=== PATIENT | male | born 1985 | race Caucasian/White ===

== ENCOUNTER 2016-12-22 18:55 | Emergency (ER) ==
[2016-12-22 19:01] VITALS: BP 133/77; TEMP 97.5; BMI 19.8
[2016-12-22] MEDS ORDERED: SODIUM CHLORIDE 1,000 ML IV STA (19:16)
--- NOTE | 2016-12-22 19:16 | ED.PDOC ---
General ED Provider: Dr. ALEXANDRA DIXON Chief Complaint: Abdominal Pain Stated Complaint: Patient is a 31 year old woke up from nap with epigastric pain. He describes the pain is constant had never had previous episodes. States the pain makes his back hurt due to tightness. Time Seen by Physician: 18:59 Mode of Arrival: Walk-In Information Source: Patient Exam Limitations: No limitations Primary Care Provider: KEYANA AYALA Nursing and Triage Documentation Reviewed and Agree: Yes GI Complaint Exam - Abdominal Pain Complaint/Exam Onset: Gradual Duration: constant Symptoms Are: Still present Timing: Constant Initial Severity: Moderate Current Severity: Moderate Location of Pain: Diffuse Radiates To: Reports: Chest Character: Reports: Sharp Aggravating: Reports: None Alleviating: Reports: None Associated Signs and Symptoms: Denies: Diaphoresis, Fever, Cough, Chest pain, Dizziness, Back pain, Constipation, Blood in stool, Dysuria, Urinary frequency, Decreased urine output, Decreased appetite, Discharge, Nausea, Vomiting, Diarrhea, Decreased activity AAA Risk Factors: Reports: None Cardiac Risk Factors: Reports: None Testicular Torsion Risk Factors: Reports: None Surgical Obstruction Risk Factors: Reports: None Related Surgical History: Reports: None Abdominal Findings: Present: None Genitalia Exam: Present: Normal findings Rectal Exam: Present: Normal Findings Male Body Picture: 1 - pain and mild tenderness Differential Diagnoses: Appendicitis, Bowel Obstruction, Constipation, Gastroenteritis, PUD Quality Indicator For Non-Traumatic Chest Pain/Syncope: EKG Performed Review of Systems - Review Of Systems Constitutional: Reports: No symptoms Eyes: Reports: No symptoms Ears, Nose, Mouth, Throat: Reports: No symptoms Respiratory: Reports: No symptoms Cardiac: Reports: No symptoms GI: Reports: Abdominal pain, Poor appetite : Reports: No symptoms Musculoskeletal: Reports: No symptoms Skin: Reports: No symptoms Neurological: Reports: Anxiety Endocrine: Reports: No symptoms Hematologic/Lymphatic: Reports: No symptoms All Other Systems: Reviewed and Negative Past Medical History - Past Medical History Endocrine: Reports: None Cardiovascular: Reports: None Respiratory: Reports: None Hematological: Reports: None Gastrointestinal: Reports: None Genitourinary: Reports: None Neuro/Psych: Reports: None Musculoskeletal: Reports: None Cancer: Reports: Other (papillary cancer of the Thyroid ) - Surgical History General Surgical History: Reports: None - Family History Family History: Reports: None - Social History Smoking Status: Never smoker Alcohol Screening: Occasionally Physical Exam - Physical Exam Appearance: Ill-appearing Eyes: LOREE, EOMI, Conjunctiva clear ENT: Ears normal, Nose normal, Oropharynx normal Neck: Supple Respiratory: Airway patent, Breath sounds clear, Breath sounds equal, Respirations nonlabored Cardiovascular: RRR, Pulses normal, No rub, No murmur GI/: Soft, Nontender, No masses, Bowel sounds normal, No Organomegaly Musculoskeletal: Normal strength, ROM intact, No edema, No calf tenderness Skin: Warm, Dry, Normal color Neurological: Sensation intact, Motor intact, Reflexes intact, Cranial nerves intact, Alert, Oriented Psychiatric: Affect appropriate, Mood appropriate Interpretation - Radiology Interpretation Radiology Interpretation By: Radiologist Radiology Results: Negative Exam Interpreted: CT Scan (Abdomen and Pelvis.) - EKG Interpretation Time of EKG #1: 20:00 Rate: Normal Rhythm: Sinus Ectopy: None [place]: NL ST Segment: Normal Interpretation: none Critical Care Note - Critical Care Note Total Time (mins): 0 Course - Course Hematology/Chemistry: 12/22/16 19:25 12/22/16 19:25 Orders, Labs, Meds: Lab Review 12/22/16 12/22/16 19:19 19:25 WBC 5.39 RBC 4.89 Hgb 14.8 Hct 42.8 MCV 87.5 MCH 30.3 MCHC 34.6 RDW Coeff of Kimberli 12.2 Plt Count 257 Immature Gran % (Auto) 0.4 Neut % (Auto) 74.4 Lymph % (Auto) 12.4 [place] % (Auto) 9.8 Eos % (Auto) 2.4 Baso % (Auto) 0.6 Immature Gran # (Auto) 0.0 Neut # 4.0 Lymph # 0.7 [place] # 0.5 Eos # 0.1 Baso # 0.0 Sodium 136 Potassium 4.0 Chloride 100 Carbon Dioxide 23 Anion Gap 17.0 BUN 16 Creatinine 0.98 Estimated GFR (MDRD) 89.00 BUN/Creatinine Ratio 16.32 Glucose 91 Calcium 7.9 L Total Bilirubin 0.62 AST 28 ALT 39 Alkaline Phosphatase 71 Troponin I < 0.0100 Total Protein 8.2 Albumin 4.2 Globulin 4.0 Albumin/Globulin Ratio 1.05 Amylase 63 Lipase 15 Urine Color Yellow Urine Clarity Clear Urine pH 6.0 Ur Specific [place] 1.025 Urine Protein Negative Urine Glucose (UA) Negative Urine Ketones 1+ Urine Blood Negative Urine Nitrite Negative Urine Bilirubin Negative Urine Urobilinogen 0.2 Ur Leukocyte Esterase Negative Orders Category Date Time Status EKG-(ED ONLY) Stat CARDIO 12/22/16 19:54 Ordered ED IV/MEDIPORT/POWERPORT .ONCE EMERGENCY 12/22/16 19:16 Active AMYLASE Stat LAB 12/22/16 19:25 Completed CBC W/ AUTO DIFF Stat LAB 12/22/16 19:25 Completed COMPREHENSIVE METABOLIC PANEL Stat LAB 12/22/16 19:25 Completed LIPASE Stat LAB 12/22/16 19:25 Completed TROPONIN I Stat LAB 12/22/16 19:25 Completed URINALYSIS C & S IF INDICATED Stat LAB 12/22/16 19:19 Completed 0.9 % Sodium Chloride [Saline Flush] MEDS 12/22/16 19:16 Ordered 1 syr IVF PRN PRN Mag-Al Plus//Lidocaine [Gi Cocktail] MEDS 12/22/16 19:26 Discontinued 30 ml PO ONCE STA Morphine Sulfate [Morphine 4 mg/ml Syringe] MEDS 12/22/16 19:26 Discontinued 4 mg IM ONCE STA Morphine Sulfate [Morphine 4 mg/ml Syringe] MEDS 12/22/16 19:44 Discontinued 4 mg IVP ONCE STA Ondansetron HCl/Pf [Zofran 4 mg/2 ml] MEDS 12/22/16 19:27 Discontinued 4 mg IVP ONCE STA Pantoprazole Sodium [Protonix IV] MEDS 12/22/16 19:18 Discontinued 40 mg IVP ONCE STA Sodium Chloride 0.9% [Sodium Chloride] 1,000 ml MEDS 12/22/16 19:[address] ABD/PEL WO RENAL STONE PROT Stat RADS 12/22/16 19:16 Completed Medications Generic Name Dose Route Start Last Admin Trade Name Freq PRN Reason Stop Dose Admin Sodium Chloride 1 syr 12/22/16 19:16 12/22/16 19:51 Saline Flush IVF 1 syr PRN PRN Administration To flush IV Discontinued Medications Generic Name Dose Route Start Last Admin Trade Name Freq PRN Reason Stop Dose Admin Al Hydroxide/Mg Hydroxide 30 ml 12/22/16 19:26 12/22/16 19:52 Gi Cocktail PO 12/22/16 19:27 30 ml ONCE STA Administration Sodium Chloride 1,000 mls @ 1,000 mls/hr 12/22/16 19:16 12/22/16 19:37 Sodium Chloride IV 12/22/16 20:15 1,000 mls/hr BOLUS STA Administration Morphine Sulfate 4 mg 12/22/16 19:26 12/22/16 19:53 Morphine 4 Mg/Ml Syringe IM 12/22/16 19:27 Not Given ONCE STA Morphine Sulfate 4 mg 12/22/16 19:44 12/22/16 19:45 Morphine 4 Mg/Ml Syringe IVP 12/22/16 19:45 4 mg ONCE STA Administration Ondansetron HCl 4 mg 12/22/16 19:27 12/22/16 19:40 Zofran 4 Mg/2 Ml IVP 12/22/16 19:28 4 mg ONCE STA Administration Pantoprazole Sodium 40 mg 12/22/16 19:18 12/22/16 19:46 Protonix Iv IVP 12/22/16 19:19 40 mg ONCE STA Administration Vital Signs: Temp Pulse Resp BP Pulse Ox 12/22/16 18:55 97.5 F L 64 20 133/77 96 Departure - Departure Time of Disposition: 20:42 Disposition: HOME SELF-CARE Discharge Problem: Abdominal pain Instructions: Abdominal Pain (ED) Condition: Stable Pt referred to PMD for follow-up: Yes (3 days ) Additional Instructions: Push fluids Take Medications as prescribed. Follow up with PCP in 2 days Prescriptions: Dicyclomine HCl [Bentyl] 10 mg PO TID #14 capsule Pantoprazole Sodium [Protonix] 40 mg PO ONCE #30 tablet. Tramadol HCl 50 mg PO TID PRN #15 tablet PRN Reason: severe Allergies/Adverse Reactions: Allergies No Known Allergies Allergy (Unverified 12/22/16 19:01) Home Medications: Ambulatory Orders Calcitriol 0.25 mcg PO DAILY 12/22/16 Calcium Carb & Citrate/Vit D3 [Citracal + D ER Tablet] 1,800 mg PO DAILY Dicyclomine HCl [Bentyl] 10 mg PO TID #14 capsule 12/22/16 Levothyroxine Sodium [Synthroid] 250 mcg PO DAILY 01/24/17 Pantoprazole Sodium [Protonix] 40 mg PO ONCE #30 tablet. 12/22/16 Tramadol HCl 50 mg PO TID PRN #15 tablet 12/22/16 Transfer Form Completed: Yes Disposition Discussed With: Patient
[2016-12-22] MEDS ORDERED: PROTONIX IV IVP STA (19:18)
[2016-12-22] MEDS ORDERED: MORPHINE 4 MG/ML SYRINGE IM STA (19:26)
[2016-12-22] MEDS ORDERED: GI COCKTAIL PO STA (19:26)
[2016-12-22] MEDS ORDERED: ZOFRAN 4 MG/2 ML IVP STA (19:27)
[2016-12-22 19:32] LABS: BASOPHILS % (AUTO) 0.6 % (0.0-3.0); EOSINOPHILS # (AUTO) 0.1 K/ul (0.0-0.7); EOSINOPHILS % (AUTO) 2.4 % (0.0-7.0); HEMATOCRIT 42.8 % (42.0-52.0); HEMOGLOBIN 14.8 g/dl (14.0-18.0); IMMATURE GRANULOCYTE % (AUTO) 0.4 % (0.0-5.0); LYMPHOCYTES # (AUTO) 0.7 K/uL (0.60-3.4); LYMPHOCYTES % (AUTO) 12.4 (10.0-50.0); MEAN CORPUSCULAR HEMOGLOBIN 30.3 pg (27.0-31.0); MEAN CORPUSCULAR HGB CONC 34.6 (31.8-35.4); MEAN CORPUSCULAR VOLUME 87.5 fl (80.0-94.0); MONOCYTES # (AUTO) 0.5 K/uL (0.4-2.0); MONOCYTES % (AUTO) 9.8 (0-10); NEUTROPHILS % (AUTO) 74.4; PLATELET COUNT 257 10^3/uL (140-440); RED BLOOD COUNT 4.89 10^6/ul (4.70-6.10); WHITE BLOOD COUNT 5.39 K/ul (4.2-10.2)
[2016-12-22] MEDS ORDERED: MORPHINE 4 MG/ML SYRINGE IVP STA (19:44)
[2016-12-22 19:51] LABS: ALBUMIN 4.2 g/dL (3.4-5.0); ALBUMIN/GLOBULIN RATIO 1.05; BILIRUBIN,TOTAL 0.62 mg/dL (0.00-1.20); BUN/CREATININE RATIO 16.32; CALCIUM 7.9 mg/dL (8.2-10.2); CREATININE 0.98 mg/dL (0.60-1.10); TOTAL PROTEIN 8.2 g/dL (6.4-8.2)
[2016-12-22 19:57] LABS: BILIRUBIN,URINE Negative (NEGATIVE); KETONES,URINE 1+ (NEGATIVE); LEUKOCYTE ESTERASE ,URINE Negative (NEGATIVE); NITRITE,URINE Negative (NEGATIVE); PROTEIN,URINE Negative (NEGATIVE); URINE, BLOOD Negative (NEGATIVE)
--- NOTE | 2016-12-22 19:57 | CT ---
EXAM: CT abdomen and pelvis without contrast HISTORY: Abdominal pain TECHNIQUE: Multi-slice transaxial helical with coronal and sagittal reformed images COMPARISON: CT abdomen/pelvis from 02/28/2011 FINDINGS: The lung bases are free of acute airspace or interstitial opacities. The heart size is no rmal. There are no pericardial or pleural effusions. The hepatic attenuation is normal relative to the spleen. The gallbladder is present without biliar y dilatation. The pancreas and adrenal glands are normal. The spleen has normal size and attenuati on. The kidneys and ureters are grossly normal. The nonopacified bladder is normal. There are phl eboliths in the pelvis. The prostate has normal size and attenuation. The appendix is normal. The intestines have normal caliber without evidence of obstruction or acute inflammation. No lymphadenopathy or ascites are detected. The aorta has normal caliber. The bones are free of suspicious osteolytic or osteoblastic lesions. IMPRESSION: No CT explanation for the patient's symptoms.
[2016-12-22 20:15] LABS: ADD URINE MICROSCOPIC NO
[2016-12-22] MEDS ORDERED: BENTYL IM STA (20:36)
== END 2016-12-22 20:58 | disposition home or self-care (01) ==
LOC: ED 18:55
DX: R10.13 Epigastric pain (principal)
CPT/HCPCS: 36415; 74176; 80053; 81001; 82150; 83690; 84484; 85025; 93005; 93010; 96361; 96372; 96374; 96375; 99283

== ENCOUNTER 2017-01-19 14:46 | Emergency (ER) ==
[2017-01-19 15:07] VITALS: BP 0/0; TEMP 97.8; BMI 26.6
[2017-01-19 15:18] LABS: BILIRUBIN,URINE Negative (NEGATIVE); KETONES,URINE 3+ (NEGATIVE); LEUKOCYTE ESTERASE ,URINE Negative (NEGATIVE); NITRITE,URINE Negative (NEGATIVE); PROTEIN,URINE Negative (NEGATIVE); URINE, BLOOD Negative (NEGATIVE)
[2017-01-19 15:20] LABS: ADD URINE MICROSCOPIC NO
--- NOTE | 2017-01-19 15:26 | ED.PDOC ---
General ED Provider: Dr. TIERRA MCGEE JR Chief Complaint: Abdominal Pain Stated Complaint: burning sensation across lower abd.last noc, went away.returned 1230 this afternoon at 1230. Laprascopic gallbladder [address] Terrell. chapman at 1100 this am. Last BM 1 hr ago, soft. Pt has not contacted surgeon.[ End ]97.8 62 20 99% 9/10- PATIENT RECALLS PAIN BEGAN UPON AWAKENING YESTERDAY ATE LITTLE AT EACH MEAL PAIN WORSE TODAY LOWER ABDOMEN AND BILATERAL FLANKS WITHOUT CVAT DIFFUSE MILD TENDERNESS INCOMPLETELY HEALED PORT SITES WIYHOUT ANY INFLAMMATION OR TENDERNESS NOTE PATIENT RETCHING ON EXAM EMESIS PRIOR TO EVALUATION--NOTE REFUSED BLOOD PRESSURE DUE TO CALCIUM RELATED( THYROID RELATED) SYMPTOMS Time Seen by Physician: 15:26 Mode of Arrival: Walk-In Information Source: Patient Exam Limitations: No limitations Primary Care Provider: KEYANA AYALA Nursing and Triage Documentation Reviewed and Agree: No Review of Systems - Review Of Systems Constitutional: Reports: Malaise Eyes: Reports: No symptoms Ears, Nose, Mouth, Throat: Reports: No symptoms Respiratory: Reports: No symptoms Cardiac: Reports: No symptoms GI: Reports: Abdomen distended, Abdominal pain, Nausea, Poor appetite, Poor fluid intake, Vomiting : Reports: No symptoms Musculoskeletal: Reports: No symptoms Skin: Reports: No symptoms Neurological: Reports: No symptoms Endocrine: Reports: No symptoms Hematologic/Lymphatic: Reports: No symptoms All Other Systems: Other Past Medical History - Past Medical History Endocrine: Denies: Hyperthyroid (THYROID CANCER ON 200MIC THYROXINE) Cardiovascular: Reports: None Respiratory: Reports: None Hematological: Reports: None Gastrointestinal: Reports: None Genitourinary: Reports: None Neuro/Psych: Reports: None Musculoskeletal: Reports: None Cancer: Reports: Other (papillary cancer of the Thyroid ) - Surgical History General Surgical History: Reports: Cholecystectomy, Other (neck dissection x 3-- left chest dissection FOR THYROID CANCER) - Family History Family History: Reports: None - Social History Smoking Status: Never smoker Hx Substance Use: No Alcohol Screening: Occasionally Physical Exam - Physical Exam Appearance: Ill-appearing Ill-appearing: Moderate Pain Distress: Moderate Eyes: LOREE, EOMI, Conjunctiva clear ENT: Ears normal, Nose normal, Oropharynx normal Neck: Supple Respiratory: Airway patent, Breath sounds clear, Breath sounds equal, Respirations nonlabored Cardiovascular: RRR, Pulses normal, No rub, No murmur GI/: Soft, No masses, Bowel sounds normal, Tender Musculoskeletal: Normal strength, ROM intact, No edema, No calf tenderness Skin: Warm, Dry, Normal color Neurological: Sensation intact, Motor intact, Reflexes intact, Cranial nerves intact, Alert, Oriented Critical Care Note - Critical Care Note Total Time (mins): 0 Course - Course Hematology/Chemistry: 01/19/17 15:40 01/19/17 15:40 Orders, Labs, Meds: Lab Review 01/19/17 01/19/17 15:13 15:40 WBC 8.57 RBC 4.52 L Hgb 13.8 L Hct 39.5 L MCV 87.4 MCH 30.5 MCHC 34.9 RDW Coeff of [place] 12.2 Plt Count 240 Immature Gran % (Auto) 0.4 Neut % (Auto) 82.3 Lymph % (Auto) 8.5 L [place] % (Auto) 6.3 Eos % (Auto) 2.0 Baso % (Auto) 0.5 Immature Gran # (Auto) 0.0 Neut # 7.1 H Lymph # 0.7 [place] # 0.5 Eos # 0.2 Baso # 0.0 Sodium 137 Potassium 3.7 Chloride 100 Carbon Dioxide 25 Anion Gap 15.7 BUN 16 Creatinine 0.91 Estimated GFR (MDRD) 97.00 BUN/Creatinine Ratio 17.58 Glucose 102 H Calcium 7.5 L Total Bilirubin 0.38 AST 34 ALT 51 Alkaline Phosphatase 68 Total Protein 7.4 Albumin 4.0 Globulin 3.4 Albumin/Globulin Ratio 1.18 Amylase 69 Lipase 21 Urine Color Yellow Urine Clarity Clear Urine pH 7.0 Ur Specific [place] 1.020 Urine Protein Negative Urine Glucose (UA) Negative Urine Ketones 3+ Urine Blood Negative Urine Nitrite Negative Urine Bilirubin Negative Urine Urobilinogen 0.2 Ur Leukocyte Esterase Negative H. pylori IgG Antibody Negative Orders Category Date Time Status ED IV/MEDIPORT/POWERPORT .ONCE EMERGENCY 01/19/17 15:33 Active IV [ED IV/MEDIPORT/POWERPORT] .ONCE EMERGENCY 01/19/17 15:50 Inactive AMYLASE Stat LAB 01/19/17 15:40 Completed CBC W/ AUTO DIFF Stat LAB 01/19/17 15:40 Completed COMPREHENSIVE METABOLIC PANEL Stat LAB 01/19/17 15:40 Completed H. PYLORI SCREEN Stat LAB 01/19/17 15:40 Completed LIPASE Stat LAB 01/19/17 15:40 Completed UA [URINALYSIS C & S IF INDICATED] Stat LAB 01/19/17 15:13 Completed 0.9 % Sodium Chloride [Saline Flush] MEDS 01/19/17 15:33 Discontinued 1 syr IVF PRN PRN Morphine Sulfate [Morphine 4 mg/ml Syringe] MEDS 01/19/17 15:50 Discontinued 4 mg IVP ONCE STA Ondansetron HCl/Pf [Zofran 4 mg/2 ml] MEDS 01/19/17 15:34 Discontinued 4 mg IVP ONCE STA Sodium Chloride 0.9% [Sodium Chloride] 1,000 ml MEDS 01/19/17 15:[address] ABDOMEN/PELVIS WO CONTRAST Stat RADS 01/19/17 15:33 Completed Medications Discontinued Medications Generic Name Dose Route Start Last Admin Trade Name Freq PRN Reason Stop Dose Admin Sodium Chloride 1,000 mls @ 1,000 mls/hr 01/19/17 15:34 01/19/17 16:41 Sodium Chloride IV 01/19/17 16:33 1,000 mls/hr BOLUS STA Administration Morphine Sulfate 4 mg 01/19/17 15:50 01/19/17 16:43 Morphine 4 Mg/Ml Syringe IVP 01/19/17 15:51 4 mg ONCE STA Administration Ondansetron HCl 4 mg 01/19/17 15:34 01/19/17 16:42 Zofran 4 Mg/2 Ml IVP 01/19/17 15:35 4 mg ONCE STA Administration Sodium Chloride 1 syr 01/19/17 15:33 Saline Flush IVF PRN PRN To flush IV Vital Signs: Temp Pulse Resp BP Pulse Ox 01/19/17 14:48 97.8 F 62 20 0/0 L 99 Departure - Departure Time of Disposition: 17:08 Disposition: HOME SELF-CARE Discharge Problem: History of cholecystectomy, Abdominal pain Instructions: Abdominal Pain (ED) Condition: Good Pt referred to PMD for follow-up: Yes Additional Instructions: FOLLOW UP WITH SURGEON SCHEDULED RECOMMEND TRY DIFFERENT FIBER PRODUCTS FOR ABDOMINAL DISCOMFORT MAY USE ULTRAM FOR PAIN MAY USE PHENERGAN FOR NAUSEA URINE IS CONCENTRATED- RECOMMEND FLUIDS 6-T0-8 CUPS DAILY FOR THREE DAYS Prescriptions: Promethazine HCl [Phenergan Tab] 25 mg PO QID PRN #12 tablet PRN Reason: Nausea / Vomiting Tramadol HCl [Ultram] 50 mg PO Q6H PRN #14 tablet PRN Reason: PAIN Allergies/Adverse Reactions: Allergies No Known Allergies Allergy (Verified 01/19/17 14:57) Home Medications: Ambulatory Orders Calcitriol 0.25 mcg PO DAILY 12/22/16 Calcium Carb & Citrate/Vit D3 [Citracal + D ER Tablet] 1,800 mg PO DAILY Dicyclomine HCl [Bentyl] 10 mg PO TID #14 capsule 12/22/16 Levothyroxine Sodium [Synthroid] 250 mcg PO DAILY 12/22/16 Pantoprazole Sodium [Protonix] 40 mg PO ONCE #30 tablet. 12/22/16 Hydrocodone Bit/Acetaminophen [[place] 7.5-325] 1 - 2 each PO Q4HR PRN 01/19/17 Promethazine HCl [Phenergan Tab] 25 mg PO QID PRN #12 tablet 01/19/17 Tramadol HCl [Ultram] 50 mg PO Q6H PRN #14 tablet 01/19/17
[2017-01-19] MEDS ORDERED: SODIUM CHLORIDE 1,000 ML IV STA (15:34)
[2017-01-19] MEDS ORDERED: ZOFRAN 4 MG/2 ML IVP STA (15:34)
[2017-01-19 15:48] LABS: BASOPHILS % (AUTO) 0.5 % (0.0-3.0); EOSINOPHILS # (AUTO) 0.2 K/ul (0.0-0.7); HEMATOCRIT 39.5 % (42.0-52.0); HEMOGLOBIN 13.8 g/dl (14.0-18.0); IMMATURE GRANULOCYTE % (AUTO) 0.4 % (0.0-5.0); LYMPHOCYTES # (AUTO) 0.7 K/uL (0.60-3.4); LYMPHOCYTES % (AUTO) 8.5 (10.0-50.0); MEAN CORPUSCULAR HEMOGLOBIN 30.5 pg (27.0-31.0); MEAN CORPUSCULAR HGB CONC 34.9 (31.8-35.4); MEAN CORPUSCULAR VOLUME 87.4 fl (80.0-94.0); MONOCYTES # (AUTO) 0.5 K/uL (0.4-2.0); MONOCYTES % (AUTO) 6.3 (0-10); NEUTROPHILS # (AUTO) 7.1 K/ul (2.0-6.9); NEUTROPHILS % (AUTO) 82.3; PLATELET COUNT 240 10^3/uL (140-440); RED BLOOD COUNT 4.52 10^6/ul (4.70-6.10); WHITE BLOOD COUNT 8.57 K/ul (4.2-10.2)
[2017-01-19] MEDS ORDERED: MORPHINE 4 MG/ML SYRINGE IVP STA (15:50)
[2017-01-19 15:58] LABS: H. PYLORI ANTIBODY NEGATIVE (NEGATIVE); H.PYLORI INTERNAL QC INTERNAL QC VALID
[2017-01-19 16:06] LABS: ALBUMIN/GLOBULIN RATIO 1.18; ANION GAP 15.7; BILIRUBIN,TOTAL 0.38 mg/dL (0.00-1.20); BUN/CREATININE RATIO 17.58; CALCIUM 7.5 mg/dL (8.2-10.2); CREATININE 0.91 mg/dL (0.60-1.10); POTASSIUM 3.7 mmol/L (3.5-5.1); TOTAL PROTEIN 7.4 g/dL (6.4-8.2)
--- NOTE | 2017-01-19 16:17 | CT ---
Examination: Noncontrast CT examination of the abdomen pelvis with axial, sagittal, and coronal ref ormats. Reason for study: Abdominal pain. Comparison: 12/22/2016. FINDINGS: Within the partially imaged lung bases. There are no pneumothoraces, pleural effusions, focal conso lidations. The heart is not enlarged. Evaluation of the intra-abdominal contents is limited by the lack of intravenous contrast administra tion. The liver, spleen, adrenal glands, and pancreas are unremarkable. There is no nephrolithiasis, hydronephrosis, or perinephric inflammatory change seen around either [place]. No focal bowel dilatation or transition point. The appendix is unremarkable. No pelvic flory e fluid or intra-abdominal free air. There is a tiny only fat containing periumbilical hernia. Phle boliths are seen within the pelvis. No osteoblastic or osteolytic lesions. Impression: No acute findings are seen within the abdomen or pelvis.
== END 2017-01-19 17:45 | disposition home or self-care (01) ==
LOC: ED 14:46
DX: R10.30 Lower abdominal pain, unspecified (principal); R11.10 Vomiting, unspecified; Z90.49 Acquired absence of other specified parts of digestive tract; Z98.890 Other specified postprocedural states; Z79.899 Other long term (current) drug therapy
CPT/HCPCS: 36415; 80053; 81001; 82150; 83690; 85025; 86677; 96361; 96374; 96375; 99283